=== PATIENT | male | born 2000 ===

== ENCOUNTER 2021-04-19 11:18 | Outpatient (CLI) | payer OTHER ==
[~2021-04-19 11:18] MED LIST: EPINEPHrine 1 MG/ML AMP ONE; Lidocaine 1% PF 5 ML VIAL ONE; Sodium Bicarbonate 2.5 MEQ/5 ML VIAL ONE
[2021-04-19 13:05] VITALS: BP 140/71; TEMP 97.8
== END 2021-04-19 12:45 | disposition home or self-care (01) ==
LOC: CSHRAD 11:18
PROVIDERS: ATTEND Orthopaedic Surgery
DX: M24.811 Other specific joint derangements of right shoulder, not elsewhere classified (principal); Z98.890 Other specified postprocedural states; S43.431A Superior glenoid labrum lesion of right shoulder, initial encounter; M65.811 Other synovitis and tenosynovitis, right shoulder; M25.811 Other specified joint disorders, right shoulder
CPT/HCPCS: 23350; J0171